=== PATIENT | male | born 1955 | race Caucasian/White ===

== ENCOUNTER 2016-11-06 09:54 | Inpatient (IN) | payer MEDICARE, MEDICAID ==
--- NOTE | 2016-11-06 10:17 | ER Document Report ---
ED Medical Screen (RME) - General Chief Complaint: Abnormal Lab Results Stated Complaint: WEAKNESS Time Seen by Provider: 11/06/16 10:14 Mode of Arrival: Wheelchair Information source: Patient Notes: 61-year-old male presents to ED for admission for dialysis. Patient states he was sent for lab work by Dr. Travis and called this morning and told me to come to the emergency room to get dialysis started. Patient has not been previously on dialysis. He has a history of diabetes blood pressure A. fib and renal failure. Patient denies any pain fever at this time I have greeted and performed a rapid initial assessment of this patient. A comprehensive ED assessment and evaluation of the patient, analysis of test results and completion of medical decision making process will be conducted by an additional ED providers. TRAVEL OUTSIDE OF THE [place] IN LAST 30 DAYS: No - Related Data Allergies/Adverse Reactions: No Known Allergies Allergy (Verified 11/06/16 10:08) Past Medical History - Past Medical History Cardiac Medical History: Reports: Hx Hypertension Denies: Hx Coronary Artery Disease, Hx Heart Attack Pulmonary Medical History: Denies: Hx Asthma, Hx Bronchitis, Hx COPD, Hx Pneumonia Neurological Medical History: Denies: Hx Cerebrovascular Accident, Hx Seizures Renal/ Medical History: Denies: Hx Peritoneal Dialysis Musculoskeltal Medical History: Denies Hx Arthritis Past Surgical History: Denies: Hx Pacemaker - Immunizations Hx Diphtheria, Pertussis, Tetanus Vaccination: No Physical Exam - Vital signs Vitals: Temp Pulse Resp BP Pulse Ox 97.5 F 94 18 103/73 96 11/06/16 10:08 11/06/16 10:08 11/06/16 10:08 11/06/16 10:08 11/06/16 10:08 Course - Vital Signs Vital signs: Temp Pulse Resp BP Pulse Ox 97.5 F 94 18 103/73 96 11/06/16 10:08 11/06/16 10:08 11/06/16 10:08 11/06/16 10:08 11/06/16 10:08
[2016-11-06 10:51] LABS: ABSOLUTE LYMPHOCYTES (AUTO) 0.5 10^3/uL (0.5-4.7); ABSOLUTE MONOCYTES (AUTO) 0.6 10^3/uL (0.1-1.4); ABSOLUTE NEUT (AUTO) 8.5 10^3/uL (1.7-8.2); BASOPHILS % (AUTO) 0.5 % (0-2); EOSINOPHILS % (AUTO) 0.4 % (0-6); HEMATOCRIT 37.2 % (37.9-51.0); HEMOGLOBIN 12.4 g/dL (13.5-17.0); LYMPHOCYTES % (AUTO) 5.1 % (13-45); MEAN CORPUSCULAR HEMOGLOBIN 27.5 pg (27.0-33.4); MEAN CORPUSCULAR HGB CONC 33.5 g/dL (32.0-36.0); MEAN CORPUSCULAR VOLUME 82 fl (80-97); MONOCYTES % (AUTO) 6.3 % (3-13); RED BLOOD COUNT 4.52 10^6/uL (4.35-5.55); RED CELL DISTRIBUTION WIDTH 16.6 % (11.5-14.0); SEGMENTED NEUTROPHILS % (AUTO) 87.7 % (42-78); WHITE BLOOD COUNT 9.7 10^3/uL (4.0-10.5)
[2016-11-06 11:16] LABS: ALANINE AMINOTRANSFERASE 16 U/L (21-72); ALBUMIN 4.9 g/dL (3.5-5.0); ALKALINE PHOSPHATASE 86 U/L (38-126); ASPARTATE AMINO TRANSFERASE 17 U/L (17-59); BILIRUBIN,DIRECT 0.5 mg/dL (0.0-0.4); BILIRUBIN,TOTAL 0.6 mg/dL (0.2-1.3); CALCIUM 11.1 mg/dL (8.4-10.2); CARBON DIOXIDE 18 mmol/L (22-30); CHLORIDE 80 mmol/L (98-107); CREATINE KINASE 55 U/L (55-170); GLUCOSE 170 mg/dL (75-110); TOTAL PROTEIN 8.6 g/dL (6.3-8.2)
[2016-11-06 11:22] LABS: CREATININE RESULT 3.91 mg/dL (0.52-1.25)
[2016-11-06 11:26] LABS: BLOOD UREA NITROGEN 139 mg/dL (7-20)
[2016-11-06 11:29] LABS: CREATINE KINASE MB 5.62 ng/mL (<4.55)
[2016-11-06 11:33] LABS: TROPONIN I 0.129 ng/mL
--- NOTE | 2016-11-06 11:36 | RADIOLOGY REPORT (SQ) ---
EXAM DESCRIPTION: CHEST PA/LAT COMPLETED DATE/TIME: 11/06/2016 11:21 am REASON FOR STUDY: renal failure COMPARISON: None. EXAM PARAMETERS: NUMBER OF VIEWS: two views TECHNIQUE: Digital Frontal and Lateral radiographic views of the chest acquired. RADIATION DOSE: NA LIMITATIONS: none FINDINGS: LUNGS AND PLEURA: No opacities, masses or pneumothorax. No pleural effusion. MEDIASTINUM AND HILAR STRUCTURES: No masses or contour abnormalities. HEART AND VASCULAR STRUCTURES: Heart normal size. No evidence for failure. BONES: No acute findings. HARDWARE: Some type of external stimulator is present on the left with the lead apparently in the sub cutaneous tissues anteriorly. Possibly an external pacemaker. OTHER: No other significant finding. IMPRESSION: NO SIGNIFICANT RADIOGRAPHIC FINDING IN THE CHEST. TECHNICAL DOCUMENTATION: JOB ID: [id number] [employer]- All Rights Reserved
[2016-11-06] MEDS ORDERED: NORMAL SALINE 1000 ML 1,000 ML IV ONE ×2 (11:51→11:52)
[2016-11-06 11:55] LABS: ANION GAP 22 (5-19)
--- NOTE | 2016-11-06 12:14 | ER Document Report ---
ED General - General Chief Complaint: Abnormal Lab Results Stated Complaint: WEAKNESS Time Seen by Provider: 11/06/16 10:14 Mode of Arrival: Wheelchair TRAVEL OUTSIDE OF THE [place] IN LAST 30 DAYS: No - HPI Patient complains to provider of: abNormal laboratory values Notes: Patient coming in for evaluation of abnormal laboratory values. Patient has a history of chronic renal disease hypertension diabetes CHF CAD with multiple stents placement and polio. Patient followed by 1 of her local soil conservation teacher had outpatient laboratory studies performed and was found to have abnormalities and was encouraged to come to the ER for further evaluation. Family states the patient was seen here for dialysis. Upon my evaluation patient states that he has no other complaints would not be here in the ER if he was not told to come by his doctor's office - Related Data Allergies/Adverse Reactions: No Known Allergies Allergy (Verified 11/06/16 10:08) Past Medical History - General Information source: Patient - Social History Smoking Status: Unknown if Ever Smoked Family History: Reviewed & Not Pertinent Patient has suicidal ideation: No Patient has homicidal ideation: No - Past Medical History Cardiac Medical History: Reports: Hx Hypertension Denies: Hx Coronary Artery Disease, Hx Heart Attack Pulmonary Medical History: Denies: Hx Asthma, Hx Bronchitis, Hx COPD, Hx Pneumonia Neurological Medical History: Denies: Hx Cerebrovascular Accident, Hx Seizures Renal/ Medical History: Denies: Hx Peritoneal Dialysis Musculoskeltal Medical History: Denies Hx Arthritis Past Surgical History: Denies: Hx Pacemaker - Immunizations Hx Diphtheria, Pertussis, Tetanus Vaccination: No Review of Systems - Review of Systems Constitutional: Other - Abnormal laboratory values EENT: No symptoms reported Cardiovascular: No symptoms reported Respiratory: No symptoms reported Gastrointestinal: No symptoms reported Genitourinary: No symptoms reported Male Genitourinary: No symptoms reported Musculoskeletal: No symptoms reported Skin: No symptoms reported Hematologic/Lymphatic: No symptoms reported Neurological/Psychological: No symptoms reported Physical Exam - Vital signs Vitals: Temp Pulse Resp BP Pulse Ox 97.5 F 94 18 103/73 96 11/06/16 10:08 11/06/16 10:08 11/06/16 10:08 11/06/16 10:08 11/06/16 10:08 Interpretation: Normal - General General appearance: Appears well, Alert - HEENT Head: Normocephalic, Atraumatic Eyes: Normal Pupils: PERRL - Respiratory Respiratory status: No respiratory distress Chest status: Nontender Breath sounds: Normal Chest palpation: Normal - Cardiovascular Rhythm: Regular Heart sounds: Normal auscultation Murmur: No - Abdominal Inspection: Normal Distension: No distension Bowel sounds: Normal Tenderness: Nontender Organomegaly: No organomegaly - Back Back: Normal, Nontender - Extremities General upper extremity: Normal inspection, Nontender, Normal color, Normal ROM , Normal temperature General lower extremity: Normal inspection, Nontender, Normal color, Normal ROM , Normal temperature, Normal weight bearing. No: Kristine's sign - Neurological Neuro grossly intact: Yes Cognition: Normal Orientation: AAOx4 [place] Coma Scale Eye Opening: Spontaneous [place]elle Coma Scale Verbal: Oriented [place] Coma Scale Motor: Obeys Commands [place] Coma Scale Total: 15 Speech: Normal Motor strength normal: LUE, RUE, LLE, RLE Sensory: Normal - Psychological Associated symptoms: Normal affect, Normal mood - Skin Skin Temperature: Warm Skin Moisture: Dry Skin Color: Normal Course - Re-evaluation Re-evalutation: 11/06/16 15:38 Patient laboratory studies shows elevated BUN and creatinine. Patient is hyponatremic. Patient also has a slight elevation in troponin however patient otherwise asymptomatic EKG does not show any acute signs patient denies any chest pain do not think any signs of any coronary artery disease are coronary event ongoing at this time. Discussed with Dr. Travis agrees with to hold the patient's diuretics and gentle IV hydration. Discussed with hospitalist will admit the patient - Vital Signs Vital signs: Temp Pulse Resp BP Pulse Ox 97.5 F 90 13 128/71 H 100 11/06/16 10:08 11/06/16 10:10 11/06/16 14:02 11/06/16 14:02 11/06/16 14:02 - Laboratory Result Diagrams: 11/06/16 10:30 11/06/16 10:30 Laboratory results interpreted by me: 11/06/16 11/06/16 11/06/16 10:30 10:30 10:30 Hgb 12.4 L Hct 37.2 L RDW 16.6 H Seg Neutrophils % 87.7 H Lymphocytes % 5.1 L Absolute Neutrophils 8.5 H Sodium 120.0 L* Chloride 80 L Carbon Dioxide 18 L Anion Gap 22 H BUN 139 H Creatinine 3.91 H Est GFR ( Amer) 19 L Est GFR (Non-Af Amer) 16 L Glucose 170 H Calcium 11.1 H Direct Bilirubin 0.5 H ALT 16 L CK-MB (CK-2) 5.62 H Total Protein 8.6 H Discharge - Discharge Clinical Impression: Hyponatremia, Acute renal failure superimposed on chronic kidney disease, Weakness Condition: Good Admitting Provider: Parrsihist Jennyfer Bermudez Unit Admitted: [facility]
--- NOTE | 2016-11-06 14:24 | EKG REPORT ---
SEVERITY:- ABNORMAL ECG - SINUS RHYTHM NONSPECIFIC INTRAVENTRICULAR CONDUCTION DELAY PROBABLE LVH WITH SECONDARY REPOL ABNRM PROBABLE INFERIOR INFARCT, AGE INDETERMINATE : Confirmed by: Marybel Cali 06-Nov-2016 14:24:28
--- NOTE | 2016-11-06 14:25 | EKG REPORT ---
SEVERITY:- ABNORMAL ECG - SINUS TACHYCARDIA CONSIDER ANTERIOR INFARCT REPOL ABNRM SUGGESTS ISCHEMIA, ANT-LAT LEADS : Confirmed by: Marybel Cali 06-Nov-2016 14:24:48
[2016-11-06] MEDS ORDERED: ACETAMINOPHEN 325 MG TABLET PO PRN (15:04)
[2016-11-06] MEDS ORDERED: ONDANSETRON HCL INJ/PF 4 MG/2 ML SDV IV PRN (15:04)
[2016-11-06 15:11] LABS: APPEARANCE,URINE CLEAR; BILIRUBIN,URINE NEGATIVE (NEGATIVE); GLUCOSE, URINE 50 mg/dL (NEGATIVE); KETONES,URINE NEGATIVE (NEGATIVE); LEUKOCYTE ESTERASE,URINE NEGATIVE (NEGATIVE); NITRITE,URINE NEGATIVE (NEGATIVE); PROTEIN,URINE 30 mg/dL (NEGATIVE); URINE SPECIFIC GRAVITY 1.005; UROBILINOGEN,URINE NEGATIVE mg/dL (<2.0)
[2016-11-06] MEDS ORDERED: NORMAL SALINE 1000 ML 1,000 ML IV PRN (15:17)
[2016-11-06] MEDS ORDERED: INSULIN REG, HUMAN 100 UNIT/ML 3 ML VIAL (PYX) SUBCUT PRN (15:24)
[2016-11-06] MEDS ORDERED: DEXTROSE 40% GEL 15 GM TUBE PO PRN ×2 (15:24)
[2016-11-06] MEDS ORDERED: GLUCAGON,HUMAN RECOMB 1 MG INJ IM PRN (15:24)
[2016-11-06] MEDS ORDERED: DEXTROSE 50%-WATER 25 GM/50 ML DISP.SYRIN IV PRN ×2 (15:24)
--- NOTE | 2016-11-06 15:41 | PDOC H&P ---
History of Present Illness Admission Date/PCP: 11/06/16 13:18 VIDYA HERRERA MD Patient complains of: Abnormal blood works History of Present Illness: CELESTINO KAYE is a 61 year old male, with history of cardiomyopathy, CHF, systolic dysfunction with ejection fraction of 30% chronic renal failure stage IV, as well as diabetes mellitus was sent to the hospital because of abnormal blood test. Patient and his usual state of health, he has no specific complaints. He was hospitalized twice and [place] for CHF and Clostridium difficile toxin. Patient being followed chronically by nephrology service for chronic kidney disease stage IV to V according to the family. Other than generalized weakness from being hospitalized recently he voices no complaints at all. No PND orthopnea, no lower extremity edema, no dyspnea on exertion, no chest pain at all. No pleurisy noted as well. He was seen recently by his school age teacher where her serum sodium was low in the 120s, repeat was done and it was still about the same. They were advised to come to the emergency room where in the ER he is calcium is 11 with serum sodium of 120 and a BUN of 139 with creatinine of 3.91. He does not have any baseline woke up or laboratory from this facility. Patient was then referred for admission. Past Medical History Past Medical History: Medication reconciliation pending verification from the patient's pharmacist. Cardiac Medical History: Reports: Congestive Heart Failure, Coronary Artery Disease, Hypertension, Peripheral Vascular Disease Denies: Myocardial Infarction Pulmonary Medical History: Reports: Asthma, Other - Pleural effusion Denies: Bronchitis, Pneumonia Neurological Medical History: Denies: Seizures Endocrine Medical History: Reports: Diabetes Mellitus Type 2 Renal/ Medical History: Reports: Chronic Kidney Disease Malignancy Medical History: Reports: None GI Medical History: Reports: Other - Clostridium difficile colitis Musculoskeltal Medical History: Denies: Arthritis Hematology: Reports: Anemia - hx of Infectious Medical History: Reports: Clostridium Difficile Past Surgical History Past Surgical History: Reports: Cardiac Catheterization, Coronary Stent, Internal Defibrillator, Other - Thoracentesis Social History Information Source: Relative Smoking Status: Former Smoker Frequency of Alcohol Use: None - 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 Hx Recreational Drug Use: No Drugs: None Family History Family History: Other - Unknown to the patient Parental Family History Reviewed: Yes Children Family History Reviewed: Yes Sibling(s) Family History Reviewed.: Yes Medication/Allergy Home Medications: Amlodipine Besylate 04/20/11 Aspirin 04/20/11 Carvedilol 04/20/11 Glyburide 04/20/11 Humalog 04/20/11 Lasix 20 mg Tablet 04/20/11 Lisinopril 04/20/11 Nexium 04/20/11 Plavix 04/20/11 Tricor 04/20/11 Allergies/Adverse Reactions: No Known Allergies Allergy (Verified 11/06/16 10:08) Review of Systems Constitutional: PRESENT: weakness - Generalized. ABSENT: chills, fever(s), headache(s), night sweats, weight gain, weight loss Eyes: ABSENT: visual disturbances Ears: ABSENT: hearing changes Nose, Mouth, and Throat: ABSENT: mouth pain, sore throat Cardiovascular: ABSENT: chest pain, dyspnea on exertion, edema, orthropnea, palpitations Respiratory: ABSENT: cough, dyspnea, hemoptysis Gastrointestinal: ABSENT: abdominal pain, constipation, diarrhea, hematemesis, hematochezia, melena, nausea, vomiting Genitourinary: ABSENT: difficulty urinating, dysuria, hematuria Musculoskeletal: ABSENT: joint swelling Integumentary: ABSENT: pruritus, rash, wounds Neurological: ABSENT: abnormal gait, abnormal speech, confusion, dizziness, focal weakness, syncope Psychiatric: ABSENT: anxiety, depression, homidical ideation, suicidal ideation Endocrine: ABSENT: cold intolerance, heat intolerance, polydipsia, polyphagia, polyuria Hematologic/Lymphatic: ABSENT: easy bleeding, easy bruising Physical Exam Vital Signs: Temp Pulse Resp BP Pulse Ox 97.5 F 90 13 128/71 H 100 11/06/16 10:08 11/06/16 10:10 11/06/16 14:02 11/06/16 14:02 11/06/16 14:02 General appearance: PRESENT: no acute distress, well-developed, well-nourished Head exam: PRESENT: atraumatic, normocephalic Eye exam: PRESENT: conjunctiva pink, EOMI, PERRLA. ABSENT: scleral icterus Ear exam: PRESENT: normal external ear exam. ABSENT: drainage Mouth exam: PRESENT: moist, neck supple, tongue midline Throat exam: ABSENT: post pharyngeal erythema, tonsillar erythema Neck exam: ABSENT: carotid bruit, JVD, lymphadenopathy, thyromegaly Respiratory exam: PRESENT: clear to auscultation keyla. ABSENT: rales, rhonchi, wheezes Cardiovascular exam: PRESENT: RRR, +S1, +S2, systolic murmur - Soft blowing in the left sternal border. ABSENT: diastolic murmur, rubs Pulses: PRESENT: normal dorsalis pedis pul Vascular exam: PRESENT: normal capillary refill GI/Abdominal exam: PRESENT: normal bowel sounds, soft. ABSENT: distended, guarding, mass, organolmegaly, rebound, tenderness Rectal exam: PRESENT: deferred Extremities exam: PRESENT: full ROM. ABSENT: calf tenderness, clubbing, pedal edema Neurological exam: PRESENT: alert, awake, oriented to person, oriented to place , oriented to time, oriented to situation Psychiatric exam: PRESENT: appropriate affect, normal mood. ABSENT: homicidal ideation, suicidal ideation Skin exam: PRESENT: dry, intact, warm. ABSENT: cyanosis, rash Results Laboratory Results: 11/06/16 14:30 Urine Color STRAW Urine Appearance CLEAR Urine pH 5.0 Ur Specific Banks 1.005 Urine Protein 30 H Urine Glucose (UA) 50 H Urine Ketones NEGATIVE Urine Blood NEGATIVE Urine Nitrite NEGATIVE Ur Leukocyte Esterase NEGATIVE Impressions: Chest X-Ray 11/06/16 10:15 IMPRESSION: NO SIGNIFICANT RADIOGRAPHIC FINDING IN THE CHEST. Assessment & Plan - Diagnosis (1) Acute renal failure Qualifiers: Acute renal failure type: unspecified Qualified Code(s): N17.9 - Acute kidney failure, unspecified Is this a current diagnosis for this admission?: Yes (2) Elevated troponin I level Is this a current diagnosis for this admission?: Yes (3) Chronic renal disease, stage IV Is this a current diagnosis for this admission?: Yes (4) Hyponatremia Is this a current diagnosis for this admission?: Yes (5) Essential hypertension Is this a current diagnosis for this admission?: Yes (6) Coronary artery disease Qualifiers: Coronary Disease-Associated Artery/Lesion type: [place] artery [place] vs. 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 Is this a current diagnosis for this admission?: Yes (8) Chronic systolic (congestive) heart failure Is this a current diagnosis for this admission?: Yes (9) Peripheral vascular disease Is this a current diagnosis for this admission?: Yes - Time Time Spent: 50 to 70 Minutes - Inpatient Certification Based on my medical assessment, after consideration of the patient's comorbidities, presenting symptoms, or acuity I expect that the services needed warrant INPATIENT care.: Yes I certify that my determination is in accordance with my understanding of Medicare's requirements for reasonable and necessary INPATIENT services [42 CFR 412.3e].: Yes Medical Necessity: Significant Comorbidiites Make Outpatient Treatment Too Risky , Need Close Monitoring Due to Risk of Patient Decompensation, Need For IV Fluids, Risk of Diagnosis Which Will Require Inpatient Eval/Care/Monitoring Post Hospital Care: D/C Heel Seat Laster Documentation - Plan Summary Plan Summary: The patient will be admitted to telemetry. We will begin gentle IV hydration with normal saline. We will consult nephrology for further evaluation and management. We will serially monitor BUN and creatinine as well as electrolytes. Patient will be placed on DVT prophylaxis with heparin. In the meantime we will serially monitor cardiac enzymes as well. We will obtain records especially EKG from [place]. We will continue the patient's beta- mariana as well as antiplatelet therapy. Patient without symptoms or acute coronary syndrome at this time. We will however consult cardiology in the morning for further evaluation. Further testing depends on the initial evaluation as outlined above.
[2016-11-06 16:20] LABS: PROTHROMBIN TIME 15.4 SEC (11.4-15.4)
[2016-11-06 16:21] LABS: PARTIAL THROMBOPLASTIN TIME 30.9 SEC (23.5-35.8)
[2016-11-06 16:37] LABS: CREATINE KINASE MB 4.29 ng/mL (<4.55); TROPONIN I 0.1 ng/mL
[2016-11-06 16:56] VITALS: BP 122/90
--- NOTE | 2016-11-06 17:24 | PDOC DISCHARGE SUMMARY ---
General - Admit/Disc Date/PCP Admission Date/Primary Care Provider: 11/06/16 15:04 VDIYA HERRERA MD Discharge Date: 11/06/16 - Discharge Diagnosis (1) Renal failure (ARF), acute on chronic Is this a current diagnosis for this admission?: Yes (2) Weakness Is this a current diagnosis for this admission?: Yes (3) Is this a current diagnosis for this admission?: Yes (4) Hyponatremia Is this a current diagnosis for this admission?: Yes (5) Is this a current diagnosis for this admission?: Yes (6) Is this a current diagnosis for this admission?: Yes (7) Is this a current diagnosis for this admission?: Yes (8) Is this a current diagnosis for this admission?: Yes (9) Is this a current diagnosis for this admission?: Yes - Additional Information Additional Information: SIGNED OUT AMA History of Present Illness Patient complains of: Abnormal labs. History of Present Illness: CELESTINO KAYE is a 61 year old male, with history of cardiomyopathy, CHF, systolic dysfunction with ejection fraction of 30% chronic renal failure stage IV, as well as diabetes mellitus was sent to the hospital because of abnormal blood test. Patient and his usual state of health, he has no specific complaints. He was hospitalized twice and [place] for CHF and Clostridium difficile toxin. Patient being followed chronically by nephrology service for chronic kidney disease stage IV to V according to the family. Other than generalized weakness from being hospitalized recently he voices no complaints at all. No PND orthopnea, no lower extremity edema, no dyspnea on exertion, no chest pain at all. No pleurisy noted as well. He was seen recently by his [employer] where her serum sodium was low in the 120s, repeat was done and it was still about the same. They were advised to come to the emergency room where in the ER he is calcium is 11 with serum sodium of 120 and a BUN of 139 with creatinine of 3.91. He does not have any baseline woke up or laboratory from this facility. Patient was then referred for admission. Hospital Course Hospital Course: Patient started on IVF. Nephrology was consulted. Patient however decided to leave AMA despite counselling. Risks of signing out discussed and patient/ family understood. Benefits of hydration and possible peritoneal dialysis explained as well. Patient made up his mind and family unable to convince him as well. He however will see Dr. Travis and primary physician as soon as possible. Physical Exam Vital Signs: Temp Pulse Resp BP Pulse Ox 97.5 F 90 15 122/90 H 100 11/06/16 10:08 11/06/16 10:10 11/06/16 16:01 11/06/16 16:01 11/06/16 16:01 Exam: Left AMA Results Laboratory Results: 11/06/16 11/06/16 15:55 15:55 Creatine Kinase 50 L CK-MB (CK-2) 4.29 Troponin I 0.100 Impressions: Chest X-Ray 11/06/16 10:15 IMPRESSION: NO SIGNIFICANT RADIOGRAPHIC FINDING IN THE CHEST. Qualifiers PATEINT BEING DISCHARGED WITH ANY OF THE FOLLOWING DIAGNOSIS?: No Plan Discharge Plan: Left AMA
[2016-11-06] MEDS ORDERED: DOCUSATE SODIUM 100 MG CAPSULE PO SCH (18:00)
[2016-11-06] MEDS ORDERED: ATORVASTATIN CALCIUM 20 MG TABLET PO SCH (22:00)
[2016-11-06] MEDS ORDERED: CARVEDILOL 6.25 MG TABLET PO SCH (22:00)
[2016-11-06] MEDS ORDERED: HEPARIN SOD (PORCINE) 5,000 UNIT/ML 1 ML SYRINGE SUBCUT SCH (22:00)
[2016-11-07] MEDS ORDERED: LANSOPRAZOLE 30 MG TAB.RAP.DR PO SCH (06:00)
[2016-11-07] MEDS ORDERED: CLOPIDOGREL BISULFATE 75 MG TABLET PO SCH (10:00)
[2016-11-07] MEDS ORDERED: ASPIRIN 81 MG TABLET, CHEWABLE PO SCH (10:00)
== END 2016-11-06 17:05 | disposition left against medical advice (07) | DRG 683 ==
LOC: ER 09:54 → EH 13:18 → UNDOADMIN 13:18 → EH 15:04
DX: N17.9 Acute kidney failure, unspecified (principal); I13.0 Hypertensive heart and chronic kidney disease with heart failure and stage 1 through stage 4 chronic kidney disease, or unspecified chronic kidney disease; I50.22 Chronic systolic (congestive) heart failure; E87.1 Hypo-osmolality and hyponatremia; I42.9 Cardiomyopathy, unspecified; E11.22 Type 2 diabetes mellitus with diabetic chronic kidney disease; E11.51 Type 2 diabetes mellitus with diabetic peripheral angiopathy without gangrene; N18.4 Chronic kidney disease, stage 4 (severe); I25.10 Atherosclerotic heart disease of native coronary artery without angina pectoris; F10.21 Alcohol dependence, in remission; J45.909 Unspecified asthma, uncomplicated; D64.9 Anemia, unspecified; Z95.810 Presence of automatic (implantable) cardiac defibrillator; Z87.891 Personal history of nicotine dependence; Z79.899 Other long term (current) drug therapy; Z79.4 Long term (current) use of insulin; Z79.02 Long term (current) use of antithrombotics/antiplatelets
CPT/HCPCS: 36415; 71020; 80053; 81001; 82550; 82553; 84484; 85025; 85610; 85730; 93005; 93010; 96360; 99284; J7030